=== PATIENT | female | born 1985 | race Caucasian/White ===

== ENCOUNTER 2017-12-02 20:18 | Emergency (ER) | payer OTHER ==
[~2017-12-02] VITALS: Ht 157.5 cm; Wt 45.4 kg
[~2017-12-02 20:18] MED LIST: AMOX500 PO; Celexa40 MG PO; HYDACE5 PO; IBUP600 PO; LAMO100 PO; MINO100 PO; MULVITMINE; Mucinex600 MG PO; NICO21TP TOP; Pepcid20 MG PO; TRAZ50 PO; Zithromax250 MG PO; Zofran8 MG PO
[2017-12-02 20:53] LABS: BASOPHILS ABSOLUTE AUTO 0.04 K/mm3 (0.00-0.23); BASOPHILS PERCENT AUTO 1 % (0-2); EOSINOPHILS ABSOLUTE AUTO 0.12 K/mm3 (0.00-0.68); EOSINOPHILS PERCENT AUTO 2 % (0-6); Hematocrit 37.6 % (33.0-51.0); Hemoglobin 12.8 g/dL (11.5-16.0); IMMATURE GRAN ABSOLUTE AUTO 0.01 K/mm3 (0.00-0.10); IMMATURE GRAN PERCENT AUTO 0 % (0-1); LYMPHOCYTES ABSOLUTE AUTO 3.17 K/mm3 (0.84-5.20); LYMPHOCYTES PERCENT AUTO 49 % (21-46); MONOCYTES ABSOLUTE AUTO 0.36 K/mm3 (0.16-1.47); MONOCYTES PERCENT AUTO 6 % (4-13); Mean Corpuscular HGB 30.3 pg (26.0-34.0); Mean Corpuscular Volume 89 fL (80-100); Mean Platelet Volume 9.9 fL (9.1-12.4); NEUTROPHILS ABSOLUTE AUTO 2.79 K/mm3 (1.96-9.15); NEUTROPHILS PERCENT AUTO 43 % (41-73); Platelet Count 265 K/mm3 (150-400); RDW Coefficient Variation 11.4 % (11.7-14.2); RDW Standard Deviation 36.6 fL (35.1-46.3); Red Blood Cell Count 4.23 M/mm3 (3.80-5.20); White Blood Cell Count 6.49 K/mm3 (4.00-11.30)
[2017-12-02 21:15] LABS: Alanine Aminotransfer (ALT/SGP 20 U/L (12-78); Albumin, Blood 3.6 g/dL (3.4-5.0); Albumin/Globulin Ratio 1.2 (0.8-1.8); Alk Phos 62 U/L (50-136); Anion Gap 6 mmol/L (6-16); Aspartate Aminotrans (AST/SGOT 12 U/L (12-37); Bilirubin, Total 0.2 mg/dL (0.1-1.0); Blood Urea Nitrogen 16 mg/dL (8-24); Bun/Creatinine Ratio 21.8 (12.0-20.0); CO2, Blood 26 mmol/L (21-32); Calcium, Blood 8.6 mg/dL (8.5-10.1); Chloride, Blood 109 mmol/L (98-108); Creatinine, Blood 0.73 mg/dL (0.40-1.00); Globulin, Blood 3.1 g/dL (2.2-4.0); Glomerular Filtration Rate >60 (60-); Glucose, Blood 82 mg/dL (70-99); Potassium, Blood 3.9 mmol/L (3.5-5.5); Sodium, Blood 141 mmol/L (136-145); Total Protein, Blood 6.7 g/dL (6.4-8.2); Troponin I <0.015 ng/mL (0.000-0.040)
[2017-12-02] MEDS ORDERED: Vistaril25 MG PO (21:59)
== END 2017-12-03 | disposition home or self-care (01) ==
LOC: ER 20:18
PROVIDERS: Emergency Medicine
DX: F41.9 Anxiety disorder, unspecified (principal); J06.9 Acute upper respiratory infection, unspecified; F11.10 Opioid abuse, uncomplicated; F43.10 Post-traumatic stress disorder, unspecified; F32.9 Major depressive disorder, single episode, unspecified; F17.210 Nicotine dependence, cigarettes, uncomplicated
CPT/HCPCS: 71046; 80053; 84484; 85025; 93005; 93010; 99283

== ENCOUNTER 2018-04-10 17:35 | Emergency (ER) | payer OTHER ==
[~2018-04-10] VITALS: Ht 157.5 cm; Wt 41.5 kg
[~2018-04-10 17:35] MED LIST changes: +Vistaril25 MG PO
[2018-04-10] MEDS ORDERED: Augmentin 875-1 EACH PO (18:19)
== END 2018-04-10 18:25 | disposition home or self-care (01) ==
LOC: ER 17:35
DX: S91.352A Open bite, left foot, initial encounter (principal); L03.116 Cellulitis of left lower limb; F17.210 Nicotine dependence, cigarettes, uncomplicated; W54.0XXA Bitten by dog, initial encounter
CPT/HCPCS: 73630; 99283-25

== ENCOUNTER 2018-06-20 16:14 | Emergency (ER) | payer OTHER ==
[~2018-06-20] VITALS: Ht 157.5 cm; Wt 43.1 kg
[~2018-06-20 16:14] MED LIST changes: +Augmentin 875-1 EACH PO
== END 2018-06-20 17:10 | disposition left against medical advice (07) ==
LOC: ER 16:14
DX: Z53.21 Procedure and treatment not carried out due to patient leaving prior to being seen by health care provider (principal)

== ENCOUNTER 2018-06-23 02:51 | Emergency (ER) | payer OTHER ==
[~2018-06-23] VITALS: Ht 157.5 cm; Wt 45.4 kg
[2018-06-23] MEDS ORDERED: Flagyl500 MG PO (03:49)
== END 2018-06-23 04:10 | disposition home or self-care (01) ==
LOC: ER 02:51
DX: Z20.2 Contact with and (suspected) exposure to infections with a predominantly sexual mode of transmission (principal); F17.210 Nicotine dependence, cigarettes, uncomplicated
CPT/HCPCS: 96372; 99282; J0696

== ENCOUNTER 2018-06-25 02:38 | Emergency (ER) | payer OTHER ==
[~2018-06-25] VITALS: Ht 157.5 cm; Wt 45.4 kg
[~2018-06-25 02:38] MED LIST changes: +Flagyl500 MG PO
== END 2018-06-25 04:15 | disposition home or self-care (01) ==
LOC: ER 02:38
DX: S90.31XA Contusion of right foot, initial encounter (principal); R21 Rash and other nonspecific skin eruption; R59.0 Localized enlarged lymph nodes; V89.2XXA Person injured in unspecified motor-vehicle accident, traffic, initial encounter; F17.210 Nicotine dependence, cigarettes, uncomplicated; Z79.899 Other long term (current) drug therapy
CPT/HCPCS: 73650; 99284-25

== ENCOUNTER 2018-11-25 01:16 | Emergency (ER) | payer OTHER | END 2018-11-25 05:27 | disposition home or self-care (01) | LOC: ER 01:16 | DX: L03.112 Cellulitis of left axilla (principal) | CPT/HCPCS: 99283 ==

== ENCOUNTER 2019-08-29 23:47 | Emergency (ER) | payer OTHER ==
[~2019-08-29] VITALS: Ht 157.5 cm; Wt 45.4 kg
== END 2019-08-30 01:49 | disposition left against medical advice (07) ==
LOC: ER 23:47
DX: Z53.21 Procedure and treatment not carried out due to patient leaving prior to being seen by health care provider (principal)

== ENCOUNTER 2019-09-03 00:10 | Emergency (ER) | payer OTHER ==
[~2019-09-03] VITALS: Ht 157.5 cm; Wt 45.4 kg
== END 2019-09-03 05:10 | disposition home or self-care (01) ==
LOC: ER 00:10
DX: R10.2 Pelvic and perineal pain (principal); R30.0 Dysuria; F17.210 Nicotine dependence, cigarettes, uncomplicated
CPT/HCPCS: 99284

== ENCOUNTER 2019-09-04 00:41 | Emergency (ER) | payer OTHER | END 2019-09-04 02:30 | disposition left against medical advice (07) | LOC: ER 00:41 | DX: Z53.21 Procedure and treatment not carried out due to patient leaving prior to being seen by health care provider (principal) ==

== ENCOUNTER 2019-10-07 19:12 | Emergency (ER) | payer OTHER ==
[~2019-10-07] VITALS: Ht 157.5 cm; Wt 45.4 kg
[2019-10-07 20:22] LABS: Source, Urine Clean Catch
[2019-10-07 20:25] LABS: Bilirubin, Urine Neg (Neg); Blood, Urine Neg (Neg); Glucose Qualitative, Urine Neg (Neg); Ketones, Urine 1+ (Neg); Leukocyte Esterase, Urine 1+ (Neg); Nitrite, Urine Neg (Neg); Protein, Urine 1+ (Neg); Urobilinogen, Urine 1+ (Normal); pH, Urine 6.5 (5.0-8.0)
[2019-10-07 20:35] LABS: Appearance, Urine Hazy (Clear); Color, Urine Yellow (P-Yellow)
[2019-10-07 20:38] LABS: Amorphous Light (0-Heavy); Bacteria Mod /hpf; Mucus Mod (0-Heavy); Red Blood Cells, Urine Not Seen /hpf (0-2); Squamous Epithelial Cells Mod /hpf (Few)
[2019-10-07] MEDS ORDERED: Flagyl500 MG PO (23:08)
[2019-10-08 00:13] LABS: Candida species (DNA Probe) Negative (NEGATIVE); G. vaginalis (DNA Probe) Positive (NEGATIVE); T. vaginalis (DNA Probe) Negative (NEGATIVE)
[2019-10-10 15:07] LABS: CHLAMYDIA TRACHOMATIS, NAA Negative (Negative); NEISSERIA GONORRHOEAE, NAA Negative (Negative)
== END 2019-10-07 23:05 | disposition home or self-care (01) ==
LOC: ER 19:12
PROVIDERS: Physician Assistant
DX: N89.8 Other specified noninflammatory disorders of vagina (principal); R10.9 Unspecified abdominal pain; R35.0 Frequency of micturition; F17.210 Nicotine dependence, cigarettes, uncomplicated
CPT/HCPCS: 76830; 76856; 81001; 81025; 87070; 87086; 87205; 87480; 87491; 87510; 87591; 87660; 99284-25

== ENCOUNTER 2019-12-15 16:37 | Emergency (ER) | payer OTHER ==
[~2019-12-15] VITALS: Ht 157.5 cm; Wt 45.4 kg
[2019-12-15] MEDS ORDERED: Augmentin 875-1 EACH PO (18:38)
== END 2019-12-15 19:13 | disposition home or self-care (01) ==
LOC: ER 16:37
DX: S00.83XA Contusion of other part of head, initial encounter (principal); F41.9 Anxiety disorder, unspecified; F32.9 Major depressive disorder, single episode, unspecified; Z79.899 Other long term (current) drug therapy; X58.XXXA Exposure to other specified factors, initial encounter
CPT/HCPCS: 70150; 99283-25

== ENCOUNTER → 2019-12-19 | Outpatient (CLI) | payer OTHER | END | disposition home or self-care (01) | LOC: LAB SHORT 16:45 → LAB EV 16:45 | DX: L03.213 Periorbital cellulitis (principal) | CPT/HCPCS: 87070; 87075; 87077; 87147; 87186; 87205 ==

== ENCOUNTER 2020-09-05 13:28 | Emergency (ER) | payer OTHER ==
[~2020-09-05] VITALS: Ht 157.5 cm; Wt 45.4 kg
[2020-09-06] MEDS ORDERED: Monodox100 MG PO (22:09)
== END 2020-09-05 15:10 | disposition left against medical advice (07) ==
LOC: ER 13:28
DX: L02.31 Cutaneous abscess of buttock (principal); L02.214 Cutaneous abscess of groin; Z53.21 Procedure and treatment not carried out due to patient leaving prior to being seen by health care provider; Z86.14 Personal history of Methicillin resistant Staphylococcus aureus infection
CPT/HCPCS: 99282

== ENCOUNTER 2020-09-06 20:39 | Emergency (ER) | payer OTHER ==
[~2020-09-06] VITALS: Ht 157.5 cm; Wt 45.4 kg
[2020-09-06] MEDS ORDERED: Monodox100 MG PO (22:09)
== END 2020-09-06 22:22 | disposition home or self-care (01) ==
LOC: ER 20:39
DX: L02.416 Cutaneous abscess of left lower limb (principal); L02.415 Cutaneous abscess of right lower limb; L02.31 Cutaneous abscess of buttock; F17.210 Nicotine dependence, cigarettes, uncomplicated
CPT/HCPCS: 99283

== ENCOUNTER 2020-11-26 01:14 | Emergency (ER) | payer OTHER ==
[~2020-11-26] VITALS: Ht 157.5 cm; Wt 47.6 kg
[~2020-11-26 01:14] MED LIST changes: +Monodox100 MG PO
[2020-11-26] MEDS ORDERED: Vibramycin100 MG PO (03:06)
== END 2020-11-26 03:38 | disposition home or self-care (01) ==
LOC: ER 01:14
DX: L02.414 Cutaneous abscess of left upper limb (principal); F17.210 Nicotine dependence, cigarettes, uncomplicated
CPT/HCPCS: 99283; A9270

== ENCOUNTER 2021-04-24 15:54 | Emergency (ER) | payer OTHER ==
[~2021-04-24] VITALS: Ht 157.5 cm; Wt 45.8 kg
[~2021-04-24 15:54] MED LIST changes: +Vibramycin100 MG PO
== END 2021-04-24 17:00 | disposition home or self-care (01) ==
LOC: ER 15:54
DX: U07.1 COVID-19 (principal); F17.210 Nicotine dependence, cigarettes, uncomplicated
CPT/HCPCS: 99282